=== PATIENT | male | born 1985 | race Hispanic/Latino ===

== ENCOUNTER 2020-06-24 00:39 | Inpatient (IN) | payer OTHER ==
[2020-06-24] MEDS ORDERED: Dexamethasone 10 MG/ML VIAL ONE ×2 (01:11→01:26)
--- NOTE | 2020-06-24 01:35 | PDOC.HHP ---
Hospitalist HPI - History of Present Illness Dyspnea History of Present Illness: PCP:Dr. Blake The patient is a 35-year-old male with no significant past medical history that presents emergency department for the above complaint. The patient reports originally being diagnosed with Covid 19 virus on 06/14/2020. He went to get tested after his brother had tested positive for the virus. He reports that 2 days later he became symptomatic. He reported a mild productive cough, mild shortness of breath and diarrhea. Reports the diarrhea has resolved, however, he has become more uncomfortable, developing body aches with increased shortness of breath over the past 2 to 3 days. He denies any chest pain, heart palpitations or lightheadedness. Denies any wheezing or history of COPD/asthma. Denies any swelling to his lower extremities. He has never had DVT/PE. He denies any abdominal pain, nausea, vomiting, hematochezia/melena. ED Course: Presented hypoxic with SPO2 in high 80s. VITAL SIGNS SatJun 24, 2020 00:41 [place] Pulse: 105, Resp: 24, Pain: 7, O2 sat: 92 on (Room Air), Time: 06/24/2020 00:41. Medications: dexamethasone 10 mg IV Push Acknowledged 01:06 06/24/2020 Normal Saline 1 L IV Fluid Infusion Acknowledged :06 06/24/2020 Hospitalist ROS - Review of Systems All other systems reviewed; all pertinent +/- noted in HPI/Subj - Medication Medications: None Allergies: No known drug allergies Hospitalist History - Past Medical History Source: patient, RN notes reviewed Cardiac: reports: no pertinent history Pulmonary: reports: no pertinent history Gastrointestinal: reports: no pertinent history - Past Surgical History Past Surgical History: reports: no pertinent history - Family History Family History: reports: no pertinent history - Social History Smoking Status: Never smoker Alcohol: reports: None Drugs: reports: none Living Situation: With Family Occupation: Student Activity level: independent ambulation - Exam General Appearance: awake alert. negative: ill appearing General - other findings: mild resp distress on 2 to 3 L nasal cannula Eye: anicteric sclera ENT: normocephalic atraumatic, dry oral mucosa Neck: supple, no lymphadenopathy Heart: no murmur, no gallops, no rubs, normal peripheral pulses Heart - other findings: Tachycardia Respiratory: CTAB, no wheezes, no rales, no ronchi, normal chest expansion, no tachypnea Gastrointestinal: soft, non-tender, non-distended, normal bowel sounds, no guarding, no rigidity Extremities: no cyanosis, no edema Skin: no rashes Neurological: cranial nerve grossly intact Musculoskeletal: normal tone, normal strength Psychiatric: normal affect, A&O x 3 Hospitalist Results - Labs Result Diagrams: 06/24/20 01:35 06/24/20 01:35 - EKG Interpretation EKG: HR 103, QTc 442 sinus tachycardia - Radiology Interpretation Chest x-ray Status: image reviewed by me, pending (report) Hospitalist H&P A/P - Problem (1) Pneumonia due to COVID-19 virus Code(s): U07.1 - COVID-19; J12.82 - PNEUMONIA DUE TO CORONAVIRUS DISEASE 2019 Status: Acute (2) Acute respiratory failure with hypoxemia Code(s): J96.01 - ACUTE RESPIRATORY FAILURE WITH HYPOXIA Status: Acute - Plan Plan: 35/M diagnosed with recent COVID-19 diagnosis, presents for worsening dyspnea. Admit to medical floor, observation status. Expected length stay less than 2 midnights. Tested Covid + 06/14/2020 Became symptomatic 06/16/2020. #Pneumonia due to COVID-19 virus WBC 5.7, lymphocytopenia At this time, no concern for superimposed bacterial pneumonia. Continue dexamethasone. Add PPI. Start remdesivir. Start vitamin supplementation. Supplemental oxygen. Isolation precautions. Trend acute phase reactants. #Acute respiratory failure with hypoxemia Presented SPO2 high 80s Recovered well with 2 to 3 L nasal cannula. Continue supplemental oxygen. Plan as per above. Lovenox for DVT prophylaxis. PPI for GI prophylaxis. CODE STATUS is full code. Discussed the case with attending physician Dr. Pickens, who agrees with plan of care.
[2020-06-24 01:49] LABS: #Lymphocytes 0.9 thou/uL (1.20-3.40); #Monocytes 0.2 thou/uL (0.11-0.59); #Neutrophils 4.6 thou/uL (1.40-6.50); %Basophils 0.2 % (0.0-1.0); %Eosinophils 0.4 % (0.0-10.0); %Monocytes 3.8 % (0.0-10.0); %Neutrophils 80.6 % (42.0-75.0); Hemoglobin 15.4 g/dL (14.0-18.0); Mean Corpuscular HGB CONC 35.5 g/dL (32.0-36.0); Mean Corpuscular Hemoglobin 30.1 pg (27.0-31.0); Mean Corpuscular Volume 84.9 fL (78.0-98.0); Platelet Count 144 thou/uL (130-400); RBC Distribution Width 11.3 % (11.5-14.5); Red Blood Cell (RBC) Count 5.12 mill/uL (4.70-6.10); White Blood Cell (WBC) Count 5.7 thou/uL (4.8-10.8)
[2020-06-24 02:11] LABS: ALT (SGPT) 59 U/L (8-55); AST (SGOT) 73 U/L (5-34); Albumin 4.1 g/dL (3.5-5.0); Alkaline Phosphatase 71 U/L (40-110); Anion Gap 17 mmol/L (10-20); BUN (Urea Nitrogen) 16 mg/dL (8.9-20.6); Bilirubin, Total 0.4 mg/dL (0.2-1.2); Calc. Creatinine Clearance 0 mL/min (70-130); Calcium 8.5 mg/dL (7.8-10.44); Carbon Dioxide 23 mmol/L (22-29); Chloride 102 mmol/L (98-107); Globulin 3.6 g/dL (2.4-3.5); Glucose 109 mg/dL (70-105); Potassium 3.7 mmol/L (3.5-5.1); Protein, Total 7.7 g/dL (6.0-8.3); Sodium 138 mmol/L (136-145)
[2020-06-24] MEDS ORDERED: Ondansetron ODT 4 MG TAB PO PRN (02:14)
[2020-06-24 04:42] VITALS: BMI 36.4
[2020-06-24] MEDS ORDERED: FLU VACC QS2020-21(6MOS UP)/PF 60 MCG/0.5 ML SYRINGE IM ONE (07:00)
--- NOTE | 2020-06-24 07:54 | RAD ---
EXAM: CHEST ONE VIEW HISTORY: Covid positive. Low oxygen saturations. Shortness of breath. COMPARISON: None FINDINGS: Cardiac silhouette is magnified by projection. There are patchy parenchymal airspace opacities seen t hroughout the lungs bilaterally suggesting viral pneumonitis related to Covid 19. No pleural effusion is appreciated. The osseous structures are intact. IMPRESSION: Covid pneumonia.
[2020-06-24 08:51] LABS: SARS-CoV-2 PCR by NAA DETECTED (NotDetected)
[2020-06-24] MEDS ORDERED: Enoxaparin Sodium 40 MG/0.4 ML SYRINGE SC SCH (09:00)
[2020-06-24] MEDS: Zinc Sulfate 220 MG CAP PO SCH (09:19)
[2020-06-24] MEDS: Dexamethasone 4 mg/ml Vial SLOW IVP SCH (09:19)
[2020-06-24] MEDS: Ascorbic Acid 500 mg Chewable Tablet PO SCH (09:19)
[2020-06-24] MEDS: Acetaminophen 325 MG TAB PO PRN ×2 (09:19→20:13)
[2020-06-24] MEDS: Cholecalciferol 1,000 UNITS (25 MCG) TAB PO SCH (09:19)
[2020-06-24] MEDS ORDERED: Albuterol 200 PUFF (6.7GM INHALER) INH PRN (09:23)
[2020-06-24] MEDS: Albuterol 200 PUFF (6.7GM INHALER) INH SCH ×4 (10:02→23:35)
[2020-06-24] MEDS: Guaifenesin DM 100-10/5 ML UDCUP PO PRN ×2 (15:03→20:14)
[2020-06-24] MEDS ORDERED: REMDESIVIR (EUA) 200 MG in Sodium Chloride 0.9% 250 ML 210 ML IV SCH (15:30)
[2020-06-24] MEDS: Melatonin 3 MG TAB PO SCH (20:11)
[2020-06-24] MEDS: Enoxaparin Sodium 40 MG/0.4 ML SYRINGE SC SCH (23:35)
[2020-06-25] MEDS: Acetaminophen 325 MG TAB PO PRN ×3 (02:37→22:30)
[2020-06-25] MEDS: Guaifenesin DM 100-10/5 ML UDCUP PO PRN ×3 (02:37→22:30)
[2020-06-25] MEDS: Albuterol 200 PUFF (6.7GM INHALER) INH SCH ×6 (03:57→22:58)
[2020-06-25 07:06] LABS: #Lymphocytes 0.8 thou/uL (1.20-3.40); #Monocytes 0.6 thou/uL (0.11-0.59); #Neutrophils 7.8 thou/uL (1.40-6.50); %Basophils 0.1 % (0.0-1.0); %Lymphocytes 8.9 % (21.0-51.0); Hemoglobin 13.8 g/dL (14.0-18.0); Mean Corpuscular HGB CONC 34.1 g/dL (32.0-36.0); Mean Corpuscular Hemoglobin 29.3 pg (27.0-31.0); Mean Corpuscular Volume 85.9 fL (78.0-98.0); Mean Platelet Volume 7.8 fL (7.4-10.4); Platelet Count 194 thou/uL (130-400); RBC Distribution Width 11.3 % (11.5-14.5); White Blood Cell (WBC) Count 9.2 thou/uL (4.8-10.8)
[2020-06-25 07:31] LABS: ALT (SGPT) 55 U/L (8-55); AST (SGOT) 64 U/L (5-34); Albumin 3.7 g/dL (3.5-5.0); Alkaline Phosphatase 57 U/L (40-110); Anion Gap 15 mmol/L (10-20); BUN (Urea Nitrogen) 18 mg/dL (8.9-20.6); Bilirubin, Total 0.5 mg/dL (0.2-1.2); Calc. Creatinine Clearance 171 mL/min (70-130); Calcium 8.3 mg/dL (7.8-10.44); Carbon Dioxide 26 mmol/L (22-29); Chloride 100 mmol/L (98-107); Globulin 3.3 g/dL (2.4-3.5); Glucose 131 mg/dL (70-105); Magnesium 2.1 mg/dL (1.6-2.6); Sodium 137 mmol/L (136-145)
[2020-06-25] MEDS: Zinc Sulfate 220 MG CAP PO SCH (08:52)
[2020-06-25] MEDS: Ascorbic Acid 500 mg Chewable Tablet PO SCH (08:52)
[2020-06-25] MEDS: Cholecalciferol 1,000 UNITS (25 MCG) TAB PO SCH (08:52)
[2020-06-25] MEDS: Enoxaparin Sodium 40 MG/0.4 ML SYRINGE SC SCH ×2 (08:52→20:24)
[2020-06-25] MEDS: Dexamethasone 4 mg/ml Vial SLOW IVP SCH (08:53)
[2020-06-25] MEDS ORDERED: Doxycycline 100 MG CAP PO SCH (14:30)
[2020-06-25] MEDS: Cefepime 1 GM in Sodium Chloride 0.9% 100 ML IVPB SCH (15:07)
[2020-06-25] MEDS: REMDESIVIR (EUA) 100 MG in Sodium Chloride 0.9% 250 ML 230 ML IV SCH (16:25)
[2020-06-25] MEDS: Mometasone 200 MCG/Formoterol 5 MCG 120 PUFF INHALER INH SCH (18:31)
--- NOTE | 2020-06-25 18:58 | PDOC.HOSPP ---
- Subjective Encounter Date: 06/25/20 Encounter Time: 14:00 Subjective: Patient seen and examined for respiratory failure due to COVID-19 pneumonia. Continues to have shortness of breath. No fever or chills reported. - Objective Vital Signs & Weight: Vital Signs (12 hours) Temp Pulse Resp BP BP Pulse Ox 06/25/20 15:48 98.5 F 89 18 125/79 93 L 06/25/20 13:15 99.2 F 06/25/20 12:32 101.6 F H 06/25/20 12:20 101.6 F H 86 20 117/74 93 L 06/25/20 08:00 92 L 06/25/20 07:44 99.1 F 79 18 116/68 92 L Weight Weight 269 lb Result Diagrams: 06/25/20 06:11 06/25/20 06:11 Additional Labs: Abnormal Lab Results - Last 48 hrs 06/24/20 01:35: AST 73 H, ALT 59 H, Globulin 3.6 H, Albumin/Globulin Ratio 1.1 L 06/24/20 01:35: RDW 11.3 L, Neutrophils % 80.6 H, Lymphocytes % 15.0 L, Lymphocytes # 0.9 L 06/24/20 05:15: SARS-CoV-2 RNA ([place]) DETECTED A* 06/24/20 06:05: Ferritin 972.82 H 06/24/20 06:06: C-Reactive Protein 11.90 H 06/24/20 06:06: D-Dimer 1.01 H 06/25/20 06:11: AST 64 H, Albumin/Globulin Ratio 1.1 L 06/25/20 06:11: Hgb 13.8 L, Hct 40.3 L, RDW 11.3 L, Neutrophils % 85.0 H, Lymphocytes % 8.9 L, Neutrophils # 7.8 H, Lymphocytes # 0.8 L, Monocytes # 0.6 H Radiology Reviewed by me: Yes (Chest x-ray reviewed) Hospitalist ROS - Review of Systems Cardiovascular: denies: chest pain, palpitations, orthopnea, paroxysmal noc. dyspnea, edema, light headedness, other Gastrointestinal: denies: nausea, vomiting, abdominal pain, diarrhea, constipation, melena, hematochezia, other - Medication Medications: Active Medications Generic Name Dose Route Start Last Admin Trade Name Freq PRN Reason Stop Dose Admin Acetaminophen 650 mg 06/24/20 02:14 06/25/20 12:32 Acetaminophen 325 Mg Tab PO 650 mg Q4H PRN Administration Headache/Fever/Mild Pain (1-3) Albuterol Sulfate 2 puff 06/24/20 10:30 06/25/20 18:31 Albuterol 200 Puff (6.7gm Inhaler) INH 2 puff [id number] [place] Administration Ascorbic Acid 1,000 mg 06/24/20 09:00 06/25/20 08:52 Ascorbic Acid 500 Mg Chewable Tablet PO 1,000 mg DAILY [place] Administration Cholecalciferol 5,000 units 06/24/20 09:00 06/25/20 08:52 Cholecalciferol 1,000 Units (25 Mcg) Tab PO 5,000 units DAILY [place] Administration Dexamethasone 6 mg 06/24/20 09:00 06/25/20 08:53 Dexamethasone 4 Mg/Ml Vial SLOW IVP 6 mg DAILY [place] Administration Enoxaparin Sodium 40 mg 06/24/20 21:00 06/25/20 08:52 Enoxaparin Sodium 40 Mg/0.4 Ml Syringe SC 40 mg 0900,2100 [place] Administration Guaifenesin/Dextromethorphan 15 ml 06/24/20 02:14 06/25/20 18:31 Guaifenesin Dm 100-10/5 Ml Udcup PO 15 ml Q4H PRN Administration Cough Remdesivir 100 mg/ Sodium 250 mls @ 250 mls/hr 06/25/20 15:00 06/25/20 16:25 Chloride IV 06/28/20 15:59 250 mls 1500 [place] Administration Cefepime HCl 1 gm/ Sodium 100 mls @ 200 mls/hr 06/25/20 15:00 06/25/20 15:07 Chloride IVPB 100 mls 0300,1500 [place] Administration Melatonin 6 mg 06/24/20 21:00 06/24/20 20:11 Melatonin 3 Mg Tab PO 6 mg HS [place] Administration Mometasone Furoate/Formoterol Fumar 2 puff 06/25/20 18:30 06/25/20 18:31 Mometasone 200 Mcg/Formoterol 5 Mcg 120 Puff Inhaler INH 2 puff BID-RT [place] Administration Pantoprazole Sodium 40 mg 06/24/20 09:00 06/25/20 08:51 Pantoprazole 40 Mg Tab PO 40 mg DAILY [place] Administration Zinc Sulfate 220 mg 06/24/20 09:00 06/25/20 08:52 Zinc Sulfate 220 Mg Cap PO 220 mg DAILY [place] Administration - Exam General Appearance: ill appearing Neck: supple, no JVD Heart: RRR, no gallops Respiratory: no wheezes, rales, rhonchi Gastrointestinal: soft, non-tender, no guarding, no rigidity Extremities: no cyanosis Neurological: no new deficit Psychiatric: normal affect, A&O x 3 Hosp A/P - Plan DVT proph w/lovenox, DVT proph w/SCDs Acute hypoxic respiratory failure due to COVID-19 pneumonia Patient was diagnosed with COVID-19 on 06/14/2020 Obesity with a BMI of 36.5 CKD stage II Abnormal LFTs Plan: Patient continues to have intermittent fever up to 101.6. Will add empiric antibiotics. Continue remdesivir with Decadron. Continue bronchodilators. Continue Lovenox for DVT prophylaxis. Continue Protonix. Wean O2 as tolerated. Monitor inflammatory markers.
[2020-06-25] MEDS: Doxycycline 100 MG CAP PO SCH (20:24)
[2020-06-25] MEDS: Melatonin 3 MG TAB PO SCH (20:25)
[2020-06-26] MEDS: Cefepime 1 GM in Sodium Chloride 0.9% 100 ML IVPB SCH ×2 (02:36→15:24)
[2020-06-26] MEDS: Albuterol 200 PUFF (6.7GM INHALER) INH SCH ×5 (02:47→18:09)
[2020-06-26] MEDS: Mometasone 200 MCG/Formoterol 5 MCG 120 PUFF INHALER INH SCH ×2 (06:22→18:10)
[2020-06-26 06:36] LABS: #Monocytes 0.7 thou/uL (0.11-0.59); #Neutrophils 5.7 thou/uL (1.40-6.50); %Eosinophils 0.1 % (0.0-10.0); %Lymphocytes 13.3 % (21.0-51.0); %Monocytes 9.3 % (0.0-10.0); %Neutrophils 77.3 % (42.0-75.0); Hemoglobin 13.6 g/dL (14.0-18.0); Mean Corpuscular HGB CONC 35.8 g/dL (32.0-36.0); Mean Corpuscular Hemoglobin 31.2 pg (27.0-31.0); Mean Corpuscular Volume 87.3 fL (78.0-98.0); Mean Platelet Volume 7.6 fL (7.4-10.4); Platelet Count 213 thou/uL (130-400); RBC Distribution Width 11.4 % (11.5-14.5); Red Blood Cell (RBC) Count 4.37 mill/uL (4.70-6.10); White Blood Cell (WBC) Count 7.3 thou/uL (4.8-10.8)
[2020-06-26 06:58] LABS: ALT (SGPT) 47 U/L (8-55); AST (SGOT) 54 U/L (5-34); Albumin 3.5 g/dL (3.5-5.0); Alkaline Phosphatase 50 U/L (40-110); Anion Gap 15 mmol/L (10-20); BUN (Urea Nitrogen) 20 mg/dL (8.9-20.6); Bilirubin, Total 0.6 mg/dL (0.2-1.2); Calc. Creatinine Clearance 216 mL/min (70-130); Calcium 7.9 mg/dL (7.8-10.44); Carbon Dioxide 23 mmol/L (22-29); Chloride 102 mmol/L (98-107); Globulin 3.2 g/dL (2.4-3.5); Glucose 123 mg/dL (70-105); Potassium 3.7 mmol/L (3.5-5.1); Protein, Total 6.7 g/dL (6.0-8.3); Sodium 136 mmol/L (136-145)
[2020-06-26] MEDS: Zinc Sulfate 220 MG CAP PO SCH (08:45)
[2020-06-26] MEDS: Ascorbic Acid 500 mg Chewable Tablet PO SCH (08:45)
[2020-06-26] MEDS: Dexamethasone 4 mg/ml Vial SLOW IVP SCH (08:45)
[2020-06-26] MEDS: Enoxaparin Sodium 40 MG/0.4 ML SYRINGE SC SCH (08:45)
[2020-06-26] MEDS: Doxycycline 100 MG CAP PO SCH ×2 (08:49→20:05)
[2020-06-26] MEDS: Cholecalciferol 1,000 UNITS (25 MCG) TAB PO SCH (08:49)
[2020-06-26] MEDS: Guaifenesin DM 100-10/5 ML UDCUP PO PRN (13:00)
[2020-06-26] MEDS: REMDESIVIR (EUA) 100 MG in Sodium Chloride 0.9% 250 ML 230 ML IV SCH (16:26)
--- NOTE | 2020-06-26 16:39 | PDOC.HOSPP ---
- Subjective Encounter Date: 06/26/20 Encounter Time: 15:30 Subjective: Patient seen and examined for respiratory failure/COVID-19 pneumonia. Appetite improving. Short of breath on minimal exertion. Dry cough. No fever or chills reported. - Objective Vital Signs & Weight: Vital Signs (12 hours) Temp Pulse Resp BP Pulse Ox 06/26/20 12:00 98.6 F 84 20 137/84 93 L 06/26/20 08:20 98.7 F 67 20 127/80 92 L 06/26/20 08:00 92 L 06/26/20 04:51 98.5 F 67 20 103/67 94 L Weight Weight 269 lb I&O: 06/25/20 06/26/20 06/27/20 06:59 06:59 06:59 Intake Total 100 Balance 100 Result Diagrams: 06/26/20 05:52 06/26/20 05:52 Additional Labs: Abnormal Lab Results - Last 48 hrs 06/25/20 06:11: AST 64 H, Albumin/Globulin Ratio 1.1 L 06/25/20 06:11: Hgb 13.8 L, Hct 40.3 L, RDW 11.3 L, Neutrophils % 85.0 H, Ly mphocytes % 8.9 L, Neutrophils # 7.8 H, Lymphocytes # 0.8 L, Monocytes # 0.6 H 06/26/20 05:52: AST 54 H, Albumin/Globulin Ratio 1.1 L 06/26/20 05:52: RBC 4.37 L, Hgb 13.6 L, Hct 38.1 L, MCH 31.2 H, RDW 11.4 L, Neutrophils % 77.3 H, Lymphocytes % 13.3 L, Lymphocytes # 1.0 L, Monocytes # 0.7 H 06/26/20 05:52: C-Reactive Protein 5.90 H 06/26/20 05:52: Ferritin 891.03 H 06/26/20 05:52: D-Dimer 0.60 H Hospitalist ROS - Review of Systems Cardiovascular: denies: chest pain, palpitations, orthopnea, paroxysmal noc. dyspnea, edema, light headedness, other Gastrointestinal: denies: nausea, vomiting, abdominal pain, diarrhea, constipation, melena, hematochezia, other - Medication Medications: Active Medications Generic Name Dose Route Start Last Admin Trade Name Freq PRN Reason Stop Dose Admin Acetaminophen 650 mg 06/24/20 02:14 06/25/20 22:30 Acetaminophen 325 Mg Tab PO 650 mg Q4H PRN Administration Headache/Fever/Mild Pain (1-3) Albuterol Sulfate 2 puff 06/24/20 10:30 06/26/20 15:24 Albuterol 200 Puff (6.7gm Inhaler) INH 2 puff [id number] [place] Administration Ascorbic Acid 1,000 mg 06/24/20 09:00 06/26/20 08:45 Ascorbic Acid 500 Mg Chewable Tablet PO 1,000 mg DAILY [place] Administration Cholecalciferol 5,000 units 06/24/20 09:00 06/26/20 08:49 Cholecalciferol 1,000 Units (25 Mcg) Tab PO 5,000 units DAILY [place] Administration Dexamethasone 6 mg 06/24/20 09:00 06/26/20 08:45 Dexamethasone 4 Mg/Ml Vial SLOW IVP 6 mg DAILY [place] Administration Doxycycline Hyclate 100 mg 06/25/20 21:00 06/26/20 08:49 Doxycycline 100 Mg Cap PO 100 mg BID [place] Administration Enoxaparin Sodium 40 mg 06/24/20 21:00 06/26/20 08:45 Enoxaparin Sodium 40 Mg/0.4 Ml Syringe SC 40 mg 0900,2100 [place] Administration Guaifenesin/Dextromethorphan 15 ml 06/24/20 02:14 06/26/20 13:00 Guaifenesin Dm 100-10/5 Ml Udcup PO 15 ml Q4H PRN Administration Cough Remdesivir 100 mg/ Sodium 250 mls @ 250 mls/hr 06/25/20 15:00 06/26/20 16:26 Chloride IV 06/28/20 15:59 250 mls 1500 [place] Administration Cefepime HCl 1 gm/ Sodium 100 mls @ 200 mls/hr 06/25/20 15:00 06/26/20 15:24 Chloride IVPB 100 mls 0300,1500 [place] Administration Melatonin 6 mg 06/24/20 21:00 06/25/20 20:25 Melatonin 3 Mg Tab PO 6 mg HS [place] Administration Mometasone Furoate/Formoterol Fumar 2 puff 06/25/20 18:30 06/26/20 06:22 Mometasone 200 Mcg/Formoterol 5 Mcg 120 Puff Inhaler INH 2 puff BID-RT [place] Administration Pantoprazole Sodium 40 mg 06/24/20 09:00 06/26/20 08:45 Pantoprazole 40 Mg Tab PO 40 mg DAILY [place] Administration Zinc Sulfate 220 mg 06/24/20 09:00 06/26/20 08:45 Zinc Sulfate 220 Mg Cap PO 220 mg DAILY [place] Administration - Exam General Appearance: ill appearing Heart: RRR, no gallops Respiratory: rales, rhonchi Gastrointestinal: soft, normal bowel sounds, no guarding, no rigidity Extremities: no cyanosis, no clubbing Neurological: no new deficit Psychiatric: A&O x 3 Hosp A/P - Plan DVT proph w/lovenox, DVT proph w/SCDs Acute hypoxic respiratory failure due to COVID-19 pneumonia Patient was diagnosed with COVID-19 on 06/14/2020 Obesity with a BMI of 36.5 CKD stage II Abnormal LFTs Plan: Afebrile with a last 24 hours. On 4 L oxygen nasal cannula. D-dimer, CRP and ferritin slowly improving. We will continue to wean O2. Continue remdesivirday 3, cefepime, doxycycline. Change Lovenox to once a day since patient is ambulating in the room to some extent. Add Mucinex. Continue humidified O2. Continue supportive care and other medications as above
[2020-06-26] MEDS: Melatonin 3 MG TAB PO SCH (20:05)
[2020-06-26] MEDS: guaiFENesin ER 600 MG TAB PO SCH (20:05)
[2020-06-26] MEDS: Acetaminophen 325 MG TAB PO PRN (20:07)
[2020-06-27] MEDS: Albuterol 200 PUFF (6.7GM INHALER) INH SCH ×7 (00:01→22:49)
[2020-06-27] MEDS: Cefepime 1 GM in Sodium Chloride 0.9% 100 ML IVPB SCH ×2 (02:54→14:10)
[2020-06-27] MEDS: Mometasone 200 MCG/Formoterol 5 MCG 120 PUFF INHALER INH SCH ×2 (06:14→18:03)
[2020-06-27 06:33] LABS: #Lymphocytes 1.4 thou/uL (1.20-3.40); #Monocytes 1.1 thou/uL (0.11-0.59); #Neutrophils 7.7 thou/uL (1.40-6.50); %Basophils 0.4 % (0.0-1.0); %Eosinophils 0.2 % (0.0-10.0); %Lymphocytes 13.6 % (21.0-51.0); %Monocytes 10.7 % (0.0-10.0); %Neutrophils 75.1 % (42.0-75.0); Hemoglobin 13.2 g/dL (14.0-18.0); Mean Corpuscular HGB CONC 34.1 g/dL (32.0-36.0); Mean Corpuscular Hemoglobin 29.5 pg (27.0-31.0); Mean Corpuscular Volume 86.4 fL (78.0-98.0); Mean Platelet Volume 7.4 fL (7.4-10.4); Platelet Count 272 thou/uL (130-400); RBC Distribution Width 11.4 % (11.5-14.5); Red Blood Cell (RBC) Count 4.48 mill/uL (4.70-6.10); White Blood Cell (WBC) Count 10.2 thou/uL (4.8-10.8)
[2020-06-27 06:55] LABS: ALT (SGPT) 55 U/L (8-55); AST (SGOT) 58 U/L (5-34); Albumin 3.5 g/dL (3.5-5.0); Alkaline Phosphatase 51 U/L (40-110); Anion Gap 15 mmol/L (10-20); BUN (Urea Nitrogen) 21 mg/dL (8.9-20.6); Bilirubin, Total 0.8 mg/dL (0.2-1.2); Calc. Creatinine Clearance 218 mL/min (70-130); Calcium 8.1 mg/dL (7.8-10.44); Carbon Dioxide 24 mmol/L (22-29); Chloride 102 mmol/L (98-107); Globulin 3.1 g/dL (2.4-3.5); Glucose 113 mg/dL (70-105); Protein, Total 6.6 g/dL (6.0-8.3); Sodium 137 mmol/L (136-145)
[2020-06-27] MEDS: Dexamethasone 4 mg/ml Vial SLOW IVP SCH (08:03)
[2020-06-27] MEDS: Cholecalciferol 1,000 UNITS (25 MCG) TAB PO SCH (08:04)
[2020-06-27] MEDS: guaiFENesin ER 600 MG TAB PO SCH ×2 (08:04→20:37)
[2020-06-27] MEDS: Enoxaparin Sodium 40 MG/0.4 ML SYRINGE SC SCH (08:04)
[2020-06-27] MEDS: Ascorbic Acid 500 mg Chewable Tablet PO SCH (08:04)
[2020-06-27] MEDS: Zinc Sulfate 220 MG CAP PO SCH (08:04)
[2020-06-27] MEDS: Doxycycline 100 MG CAP PO SCH ×2 (08:06→20:37)
[2020-06-27] MEDS: REMDESIVIR (EUA) 100 MG in Sodium Chloride 0.9% 250 ML 230 ML IV SCH (15:41)
[2020-06-27] MEDS ORDERED: Cepastat Lozenges 1 LOZ PO PRN (16:28)
[2020-06-27] MEDS: Melatonin 3 MG TAB PO SCH (20:37)
--- NOTE | 2020-06-27 22:07 | PDOC.HOSPP ---
- Subjective Encounter Date: 06/27/20 Encounter Time: 16:00 Subjective: Patient seen and examined for respiratory failure. Symptomatically feeling better. Denies any chest pain or Palpitations. Shortness of breath slowly improving. Cough with minimal production. - Objective Vital Signs & Weight: Vital Signs (12 hours) Temp Pulse Resp BP Pulse Ox 06/27/20 21:01 98.3 F 72 22 H 126/83 94 L 06/27/20 16:03 98.3 F 72 18 135/82 92 L 06/27/20 11:56 98.6 F 73 18 121/80 96 Weight Weight 269 lb I&O: 06/26/20 06/27/20 06/28/20 06:59 06:59 06:59 Intake Total 100 360 Balance 100 360 Result Diagrams: 06/27/20 05:46 06/27/20 05:46 Additional Labs: Abnormal Lab Results - Last 48 hrs 06/26/20 05:52: AST 54 H, Albumin/Globulin Ratio 1.1 L 06/26/20 05:52: RBC 4.37 L, Hgb 13.6 L, Hct 38.1 L, MCH 31.2 H, RDW 11.4 L, Neutrophils % 77.3 H, Lymphocytes % 13.3 L, Lymphocytes # 1.0 L, Monocytes # 0.7 H 06/26/20 05:52: C-Reactive Protein 5.90 H 06/26/20 05:52: Ferritin 891.03 H 06/26/20 05:52: D-Dimer 0.60 H 06/27/20 05:46: BUN 21 H, AST 58 H, Albumin/Globulin Ratio 1.1 L 06/27/20 05:46: RBC 4.48 L, Hgb 13.2 L, Hct 38.7 L, RDW 11.4 L, Neutrophils % 75.1 H, Lymphocytes % 13.6 L, Monocytes % 10.7 H, Neutrophils # 7.7 H, Monocytes # 1.1 H Hospitalist ROS - Review of Systems Cardiovascular: denies: chest pain, palpitations, orthopnea, paroxysmal noc. dyspnea, edema, light headedness, other Gastrointestinal: denies: nausea, vomiting, abdominal pain, diarrhea, constipation, melena, hematochezia, other - Medication Medications: Active Medications Generic Name Dose Route Start Last Admin Trade Name Freq PRN Reason Stop Dose Admin Acetaminophen 650 mg 06/24/20 02:14 06/26/20 20:07 Acetaminophen 325 Mg Tab PO 650 mg Q4H PRN Administration Headache/Fever/Mild Pain (1-3) Albuterol Sulfate 2 puff 06/24/20 10:30 06/27/20 18:03 Albuterol 200 Puff (6.7gm Inhaler) INH 2 puff [id number] [place] Administration Ascorbic Acid 1,000 mg 06/24/20 09:00 06/27/20 08:04 Ascorbic Acid 500 Mg Chewable Tablet PO 1,000 mg DAILY [place] Administration Cholecalciferol 5,000 units 06/24/20 09:00 06/27/20 08:04 Cholecalciferol 1,000 Units (25 Mcg) Tab PO 5,000 units DAILY [place] Administration Dexamethasone 6 mg 06/24/20 09:00 06/27/20 08:03 Dexamethasone 4 Mg/Ml Vial SLOW IVP 6 mg DAILY [place] Administration Doxycycline Hyclate 100 mg 06/25/20 21:00 06/27/20 20:37 Doxycycline 100 Mg Cap PO 100 mg BID [place] Administration Enoxaparin Sodium 40 mg 06/27/20 09:00 06/27/20 08:04 Enoxaparin Sodium 40 Mg/0.4 Ml Syringe SC 40 mg 0900 [place] Administration Guaifenesin 600 mg 06/26/20 21:00 06/27/20 20:37 Guaifenesin Er 600 Mg Tab PO 600 mg Q12HR [place] Administration Guaifenesin/Dextromethorphan 15 ml 06/24/20 02:14 06/26/20 13:00 Guaifenesin Dm 100-10/5 Ml Udcup PO 15 ml Q4H PRN Administration Cough Remdesivir 100 mg/ Sodium 250 mls @ 250 mls/hr 06/25/20 15:00 06/27/20 15:41 Chloride IV 06/28/20 15:59 250 mls 1500 [place] Administration Cefepime HCl 1 gm/ Sodium 100 mls @ 200 mls/hr 06/25/20 15:00 06/27/20 14:10 Chloride IVPB 100 mls 0300,1500 [place] Administration Melatonin 6 mg 06/24/20 21:00 06/27/20 20:37 Melatonin 3 Mg Tab PO 6 mg HS [place] Administration Mometasone Furoate/Formoterol Fumar 2 puff 06/25/20 18:30 06/27/20 18:03 Mometasone 200 Mcg/Formoterol 5 Mcg 120 Puff Inhaler INH 2 puff BID-RT [place] Administration Pantoprazole Sodium 40 mg 06/24/20 09:00 06/27/20 08:03 Pantoprazole 40 Mg Tab PO 40 mg DAILY [place] Administration Zinc Sulfate 220 mg 06/24/20 09:00 06/27/20 08:04 Zinc Sulfate 220 Mg Cap PO 220 mg DAILY [place] Administration - Exam General Appearance: awake alert Neck: supple, no JVD Heart: RRR Respiratory: no wheezes, rales, rhonchi, tachypneic Gastrointestinal: soft, non-tender, no guarding, no rigidity Extremities: no cyanosis Neurological: no new deficit Hosp A/P - Plan DVT proph w/lovenox, DVT proph w/SCDs Acute hypoxic respiratory failure due to COVID-19 pneumonia Patient was diagnosed with COVID-19 on 06/14/2020 Obesity with a BMI of 36.5 CKD stage II Abnormal LFTs Plan: Wean O2 as tolerated. Remains on 3-4 L oxygen nasal cannula. Continue Remdesivir, Decadron with empiric antibiotics. Continue DVT and GI prophylaxis. Check a.m. labs including inflammatory markers. Continue isolation. Continue other medications as above. Continue bronchodilators 06/26 Afebrile with a last 24 hours. On 4 L oxygen nasal cannula. D-dimer, CRP and ferritin slowly improving. We will continue to wean O2. Continue remdesivirday 3, cefepime, doxycycline. Change Lovenox to once a day since patient is ambulating in the room to some extent. Add Mucinex. Continue humidified O2. Continue supportive care and other medications as above
[2020-06-27] MEDS: Acetaminophen 325 MG TAB PO PRN (22:48)
[2020-06-27] MEDS: Guaifenesin DM 100-10/5 ML UDCUP PO PRN (22:48)
[2020-06-28] MEDS: Cefepime 1 GM in Sodium Chloride 0.9% 100 ML IVPB SCH ×2 (02:24→14:09)
[2020-06-28] MEDS: Albuterol 200 PUFF (6.7GM INHALER) INH SCH ×6 (02:25→21:55)
[2020-06-28] MEDS: Mometasone 200 MCG/Formoterol 5 MCG 120 PUFF INHALER INH SCH ×2 (05:50→18:06)
[2020-06-28 07:09] LABS: #Eosinphils 0.1 thou/uL (0.0-0.7); #Lymphocytes 1.6 thou/uL (1.20-3.40); #Monocytes 1.1 thou/uL (0.11-0.59); #Neutrophils 8.1 thou/uL (1.40-6.50); %Basophils 0.2 % (0.0-1.0); %Eosinophils 0.6 % (0.0-10.0); %Lymphocytes 14.9 % (21.0-51.0); %Monocytes 10.4 % (0.0-10.0); %Neutrophils 73.9 % (42.0-75.0); Hemoglobin 13.5 g/dL (14.0-18.0); Mean Corpuscular HGB CONC 34.5 g/dL (32.0-36.0); Mean Corpuscular Hemoglobin 30.1 pg (27.0-31.0); Mean Corpuscular Volume 87.2 fL (78.0-98.0); Mean Platelet Volume 7.1 fL (7.4-10.4); Platelet Count 316 thou/uL (130-400); RBC Distribution Width 11.3 % (11.5-14.5); Red Blood Cell (RBC) Count 4.48 mill/uL (4.70-6.10); White Blood Cell (WBC) Count 10.9 thou/uL (4.8-10.8)
[2020-06-28 07:30] LABS: ALT (SGPT) 75 U/L (8-55); AST (SGOT) 59 U/L (5-34); Albumin 3.5 g/dL (3.5-5.0); Alkaline Phosphatase 53 U/L (40-110); Anion Gap 15 mmol/L (10-20); BUN (Urea Nitrogen) 25 mg/dL (8.9-20.6); Bilirubin, Total 0.7 mg/dL (0.2-1.2); Calc. Creatinine Clearance 201 mL/min (70-130); Calcium 8.3 mg/dL (7.8-10.44); Carbon Dioxide 22 mmol/L (22-29); Chloride 105 mmol/L (98-107); Globulin 3.2 g/dL (2.4-3.5); Glucose 106 mg/dL (70-105); Potassium 3.7 mmol/L (3.5-5.1); Protein, Total 6.7 g/dL (6.0-8.3); Sodium 138 mmol/L (136-145)
[2020-06-28] MEDS: Ascorbic Acid 500 mg Chewable Tablet PO SCH (07:38)
[2020-06-28] MEDS: guaiFENesin ER 600 MG TAB PO SCH ×2 (07:38→20:31)
[2020-06-28] MEDS: Cholecalciferol 1,000 UNITS (25 MCG) TAB PO SCH (07:38)
[2020-06-28] MEDS: Zinc Sulfate 220 MG CAP PO SCH (07:38)
[2020-06-28] MEDS: Dexamethasone 4 mg/ml Vial SLOW IVP SCH (07:39)
[2020-06-28] MEDS: Enoxaparin Sodium 40 MG/0.4 ML SYRINGE SC SCH (07:39)
[2020-06-28] MEDS: Doxycycline 100 MG CAP PO SCH ×2 (07:42→20:31)
[2020-06-28] MEDS: REMDESIVIR (EUA) 100 MG in Sodium Chloride 0.9% 250 ML 230 ML IV SCH (15:44)
--- NOTE | 2020-06-28 19:47 | PDOC.HOSPP ---
- Subjective Encounter Date: 06/28/20 Encounter Time: 14:30 Subjective: Patient seen and examined for respiratory failure. Short of breath on [id number] exertion. Denies any other complaints. - Objective Vital Signs & Weight: Vital Signs (12 hours) Temp Pulse Resp BP Pulse Ox 06/28/20 08:27 98.3 F 62 20 122/74 94 L 06/28/20 08:00 94 L Weight Weight 269 lb I&O: 06/27/20 06/28/20 06/29/20 06:59 06:59 06:59 Intake Total 360 240 Balance 360 240 Result Diagrams: 06/28/20 06:53 06/28/20 06:53 Additional Labs: Abnormal Lab Results - Last 48 hrs 06/27/20 05:46: BUN 21 H, AST 58 H, Albumin/Globulin Ratio 1.1 L 06/27/20 05:46: RBC 4.48 L, Hgb 13.2 L, Hct 38.7 L, RDW 11.4 L, Neutrophils % 75.1 H, Lymphocytes % 13.6 L, Monocytes % 10.7 H, Neutrophils # 7.7 H, Monocytes # 1.1 H 06/28/20 06:53: BUN 25 H, AST 59 H, ALT 75 H, Albumin/Globulin Ratio 1.1 L 06/28/20 06:53: WBC 10.9 H, RBC 4.48 L, Hgb 13.5 L, Hct 39.0 L, RDW 11.3 L, MPV 7.1 L, Lymphocytes % 14.9 L, Monocytes % 10.4 H, Neutrophils # 8.1 H, Monocytes # 1.1 H 06/28/20 06:53: C-Reactive Protein 1.19 H 06/28/20 06:53: Ferritin 779.70 H 06/28/20 06:53: D-Dimer 0.56 H Hospitalist ROS - Review of Systems Cardiovascular: denies: chest pain, palpitations, orthopnea, paroxysmal noc. dyspnea, edema, light headedness, other Gastrointestinal: denies: nausea, vomiting, abdominal pain, diarrhea, constipation, melena, hematochezia, other - Medication Medications: Active Medications Generic Name Dose Route Start Last Admin Trade Name Freq PRN Reason Stop Dose Admin Acetaminophen 650 mg 06/24/20 02:14 06/27/20 22:48 Acetaminophen 325 Mg Tab PO 650 mg Q4H PRN Administration Headache/Fever/Mild Pain (1-3) Albuterol Sulfate 2 puff 06/24/20 10:30 06/28/20 18:06 Albuterol 200 Puff (6.7gm Inhaler) INH 2 puff [id number] [place] Administration Ascorbic Acid 1,000 mg 06/24/20 09:00 06/28/20 07:38 Ascorbic Acid 500 Mg Chewable Tablet PO 1,000 mg DAILY [place] Administration Cholecalciferol 5,000 units 06/24/20 09:00 06/28/20 07:38 Cholecalciferol 1,000 Units (25 Mcg) Tab PO 5,000 units DAILY [place] Administration Dexamethasone 6 mg 06/24/20 09:00 06/28/20 07:39 Dexamethasone 4 Mg/Ml Vial SLOW IVP 6 mg DAILY [place] Administration Doxycycline Hyclate 100 mg 06/25/20 21:00 06/28/20 07:42 Doxycycline 100 Mg Cap PO 100 mg BID [place] Administration Enoxaparin Sodium 40 mg 06/27/20 09:00 06/28/20 07:39 Enoxaparin Sodium 40 Mg/0.4 Ml Syringe SC 40 mg 0900 [place] Administration Guaifenesin 600 mg 06/26/20 21:00 06/28/20 07:38 Guaifenesin Er 600 Mg Tab PO 600 mg Q12HR [place] Administration Guaifenesin/Dextromethorphan 15 ml 06/24/20 02:14 06/27/20 22:48 Guaifenesin Dm 100-10/5 Ml Udcup PO 15 ml Q4H PRN Administration Cough Cefepime HCl 1 gm/ Sodium 100 mls @ 200 mls/hr 06/25/20 15:00 06/28/20 14:09 Chloride IVPB 100 mls 0300,1500 [place] Administration Melatonin 6 mg 06/24/20 21:00 06/27/20 20:37 Melatonin 3 Mg Tab PO 6 mg HS [place] Administration Mometasone Furoate/Formoterol Fumar 2 puff 06/25/20 18:30 06/28/20 18:06 Mometasone 200 Mcg/Formoterol 5 Mcg 120 Puff Inhaler INH 2 puff BID-RT [place] Administration Pantoprazole Sodium 40 mg 06/24/20 09:00 06/28/20 07:38 Pantoprazole 40 Mg Tab PO 40 mg DAILY [place] Administration Zinc Sulfate 220 mg 06/24/20 09:00 06/28/20 07:38 Zinc Sulfate 220 Mg Cap PO 220 mg DAILY [place] Administration - Exam General Appearance: awake alert Heart: RRR, no gallops Respiratory: no wheezes, rales, rhonchi Gastrointestinal: soft, non-distended, no guarding, no rigidity Extremities: no cyanosis Neurological: no new deficit Musculoskeletal: generalized weakness Psychiatric: A&O x 3 Hosp A/P - Plan DVT proph w/SCDs Acute hypoxic respiratory failure due to COVID-19 pneumonia Patient was diagnosed with COVID-19 on 06/14/2020 Obesity with a BMI of 36.5 CKD stage II Abnormal LFTs Plan: Continue O2 at 3 L nasal cannula. CRP 1.1. Ferritin slowly improving. Last dose of remdesivir today. Will continue empiric antibiotics. Continue GI and DVT prophylaxis. Home O2 set up. DC planning in 24 to 48 hours if stable 06/27 Wean O2 as tolerated. Remains on 3-4 L oxygen nasal cannula. Continue Remdesivir, Decadron with empiric antibiotics. Continue DVT and GI prophylaxis. Check a.m. labs including inflammatory markers. Continue isolation. Continue other medications as above. Continue bronchodilators 06/26 Afebrile with a last 24 hours. On 4 L oxygen nasal cannula. D-dimer, CRP and ferritin slowly improving. We will continue to wean O2. Continue remdesivirday 3, cefepime, doxycycline. Change Lovenox to once a day since patient is ambulating in the room to some extent. Add Mucinex. Continue humidified O2. Continue supportive care and other medications as above
[2020-06-28] MEDS: Melatonin 3 MG TAB PO SCH (20:31)
[2020-06-29] MEDS: Albuterol 200 PUFF (6.7GM INHALER) INH SCH ×4 (04:00→15:08)
[2020-06-29] MEDS: Cefepime 1 GM in Sodium Chloride 0.9% 100 ML IVPB SCH (04:19)
[2020-06-29] MEDS: Mometasone 200 MCG/Formoterol 5 MCG 120 PUFF INHALER INH SCH (05:46)
[2020-06-29 06:47] LABS: #Eosinphils 0.2 thou/uL (0.0-0.7); #Monocytes 1.2 thou/uL (0.11-0.59); %Basophils 0.4 % (0.0-1.0); %Eosinophils 1.7 % (0.0-10.0); %Lymphocytes 16.2 % (21.0-51.0); %Monocytes 9.8 % (0.0-10.0); Hemoglobin 13.4 g/dL (14.0-18.0); Mean Corpuscular Hemoglobin 29.7 pg (27.0-31.0); Mean Corpuscular Volume 87.4 fL (78.0-98.0); Platelet Count 376 thou/uL (130-400); RBC Distribution Width 11.4 % (11.5-14.5); Red Blood Cell (RBC) Count 4.51 mill/uL (4.70-6.10); White Blood Cell (WBC) Count 12.6 thou/uL (4.8-10.8)
[2020-06-29 07:08] LABS: ALT (SGPT) 75 U/L (8-55); AST (SGOT) 48 U/L (5-34); Albumin 3.6 g/dL (3.5-5.0); Alkaline Phosphatase 54 U/L (40-110); Anion Gap 14 mmol/L (10-20); BUN (Urea Nitrogen) 21 mg/dL (8.9-20.6); Bilirubin, Total 0.7 mg/dL (0.2-1.2); Calc. Creatinine Clearance 181 mL/min (70-130); Calcium 8.5 mg/dL (7.8-10.44); Carbon Dioxide 24 mmol/L (22-29); Chloride 101 mmol/L (98-107); Globulin 3.2 g/dL (2.4-3.5); Glucose 112 mg/dL (70-105); Potassium 3.5 mmol/L (3.5-5.1); Protein, Total 6.8 g/dL (6.0-8.3); Sodium 135 mmol/L (136-145)
[2020-06-29] MEDS: Dexamethasone 4 mg/ml Vial SLOW IVP SCH (07:58)
[2020-06-29] MEDS: Ascorbic Acid 500 mg Chewable Tablet PO SCH (07:59)
[2020-06-29] MEDS: guaiFENesin ER 600 MG TAB PO SCH (07:59)
[2020-06-29] MEDS: Zinc Sulfate 220 MG CAP PO SCH (07:59)
[2020-06-29] MEDS: Enoxaparin Sodium 40 MG/0.4 ML SYRINGE SC SCH (07:59)
[2020-06-29] MEDS: Cholecalciferol 1,000 UNITS (25 MCG) TAB PO SCH (07:59)
[2020-06-29] MEDS: Doxycycline 100 MG CAP PO SCH (08:01)
[2020-06-29 09:11] VITALS: BP 121/76; TEMP 98.5
--- NOTE | 2020-06-29 20:11 | PDOC.DS.DS ---
Provider - Provider Date of Admission: 06/24/20 09:09 Date of Discharge: 06/29/20 Admitting Provider: Maxime Pickens MD Course - Hospital Course Hospital Course: Patient is a 35-year-old male with obesity with recent diagnosis of COVID-19 presented to the hospital with shortness of breath. His O2 saturation were in 80s. Please refer to the history and physical for further details. The patient was admitted to the hospital with a diagnosis acute hypoxic respiratory failure due to COVID-19 pneumonia. He was placed on oxygen, bronchodilators, remdesivir, empiric antibiotics and steroids. His symptoms have gradually improved. Home oxygen has been arranged. He appears stable for discharge. He was extensively counseled on COVID-19. Final diagnosis: Acute hypoxic respiratory failure due to COVID-19 pneumonia Obesity with a BMI of 36.5 CKD stage II Abnormal LFTs Resuscitation Status: 06/24/20 02:14 Resuscitation Status Routine Co-Sign Provider: Resuscitation Status: FULL: Full Resuscitation Discussed with: patient - Labs Lab Results: 06/29/20 06:11 06/29/20 06:11 Abnormal Lab Results - Last 48 hrs 06/28/20 06:53: BUN 25 H, AST 59 H, ALT 75 H, Albumin/Globulin Ratio 1.1 L 06/28/20 06:53: WBC 10.9 H, RBC 4.48 L, Hgb 13.5 L, Hct 39.0 L, RDW 11.3 L, MPV 7.1 L, Lymphocytes % 14.9 L, Monocytes % 10.4 H, Neutrophils # 8.1 H, Monocytes # 1.1 H 06/28/20 06:53: C-Reactive Protein 1.19 H 06/28/20 06:53: Ferritin 779.70 H 06/28/20 06:53: D-Dimer 0.56 H 06/29/20 06:11: Sodium 135 L, BUN 21 H, AST 48 H, ALT 75 H, Albumin/Globulin Ratio 1.1 L 06/29/20 06:11: WBC 12.6 H, RBC 4.51 L, Hgb 13.4 L, Hct 39.4 L, RDW 11.4 L, MPV 7.0 L, Lymphocytes % 16.2 L, Neutrophils # 9.0 H, Monocytes # 1.2 H - Physical Exam Vitals: Vital Signs (12 hours) Temp Pulse Resp BP Pulse Ox 06/29/20 09:11 98.5 F 69 20 121/76 96 Weight Weight 269 lb Physical Exam: The patient was seen and examined on the day of discharge. Plan - Discharge Medications Prescriptions: Dexamethasone 6 mg PO ASDIR #7 tablet Pantoprazole [Protonix] 40 mg PO DAILY #30 tab Albuterol Sulfate HFA (OR) [Proventil Hfa (or)] 2 puff INH Q4H #1 inh Doxycycline [Vibramycin] 100 mg PO BID #10 cap Ascorbic Acid [Vitamin C] 500 mg PO DAILY #30 tab Zinc Sulfate 220 mg PO DAILY #30 cap Home Medications: Medication Instructions Recorded Confirmed Type Albuterol Sulfate HFA (OR) 2 puff INH Q4H #1 inh 06/29/20 Rx [Proventil Hfa (or)] Ascorbic Acid [Vitamin C] 500 mg PO DAILY #30 tab 06/29/20 Rx Dexamethasone 6 mg PO ASDIR #7 tablet 06/29/20 Rx Doxycycline [Vibramycin] 100 mg PO BID #10 cap 06/29/20 Rx Pantoprazole [Protonix] 40 mg PO DAILY #30 tab 06/29/20 Rx Zinc Sulfate 220 mg PO DAILY #30 cap 06/29/20 Rx Allergies: No Known Drug Allergies Allergy (Verified 06/24/20 05:18) - Follow up Plan Referrals: [facility] [MD Not on Staff] - 7 Days Gee Ray MD [Active] - 14 Days Disposition: HOME Quality - Care Measures CORE MEASURES:: N/A
== END 2020-06-29 15:15 | disposition home or self-care (01) | DRG 177 ==
LOC: ERS 00:39 → T4-A 01:29 → OBSVTOIN 09:09
PROVIDERS: ADMIT Internal Medicine; ATTEND Internal Medicine
PROC: XW033E5 Introduction of Remdesivir Anti-infective into Peripheral Vein, Percutaneous Approach, New Technology Group 5 (ICD-10-PCS; principal; 2020-06-24)
PROC: 8E0ZXY6 Isolation (ICD-10-PCS; 2020-06-24)
DX: U07.1 COVID-19 (principal); J96.01 Acute respiratory failure with hypoxia; J12.82 Pneumonia due to coronavirus disease 2019; N18.2 Chronic kidney disease, stage 2 (mild); R94.5 Abnormal results of liver function studies; E66.9 Obesity, unspecified; Z68.36 Body mass index [BMI] 36.0-36.9, adult
CPT/HCPCS: 36415; 71045; 80053; 82728; 83735; 85025; 85379; 86140; 87635; 93005; 96374; G0378; J0692; J1100; J1650; J3490; J7050; U0003; U0005